=== PATIENT | male | born 1950 | race Caucasian/White ===

== ENCOUNTER → 2018-11-01 09:05 | Outpatient (CLI) | payer MEDICARE, OTHER, SELFPAY ==
--- NOTE | 2018-11-01 09:07 | DI.RAD.S_ITS ---
PROCEDURE: XR LUMBAR SPINE MIN 4V INDICATIONS: Lumbosacral spondylosis TECHNIQUE: 5 views of the lumbar spine were acquired. COMPARISON: [facility] ORI Verm[place], SPINE LUMB MIN 4VW, 02/28/2017, 8:32. [facility] [place], RF, LUMBAR MBB, 10/06/2017, 11:22. FINDINGS: Bones: No fracture or focal osseous destruction. Mild dextrocurvature. Straightening of the normal lumbar lordosis. Diffuse endplate osteophytosis and sclerosis. Diffuse facet arthropathy. Severe uniform narrowing of all of the lumbar disc spaces. Soft tissues: Overlying bowel gas pattern is normal. Scattered atherosclerotic ossifications project in the aorta No suspicious soft tissue calcifications. Oblique images: No pars defects. IMPRESSION: Redemonstration of severe, diffuse lumbar disc degeneration and facet arthropathy. Straightening of the lumbar lordosis and dextrocurvature centered at L3 as before. Overall, no definite interval change. Dictated by: Luis Caceres M.D. on 11/01/2018 at 10:07 Approved by: Luis Caceres M.D. on 11/01/2018 at 10:09
== END ==
PROVIDERS: PCP Physician Assistant; Visit Provider Physical Medicine & Rehabilitation
DX: M47.817 Spondylosis without myelopathy or radiculopathy, lumbosacral region (principal); M48.061 Spinal stenosis, lumbar region without neurogenic claudication; M41.50 Other secondary scoliosis, site unspecified
CPT/HCPCS: 72110; 99214

== ENCOUNTER 2018-11-14 10:05 | Outpatient (CLI) | payer MEDICARE, OTHER, SELFPAY ==
[2018-11-14] VITALS (11 sets, daily range): BP systolic 123–154; BP diastolic 47–97; PULSE 18–87; RESP 16–18; TEMP 36.7; O2SAT 93–99
--- NOTE | 2018-11-14 10:07 | DI.RAD.S_ITS ---
PROCEDURE: PAIN L/S MED/LAT N RFA BILAT INDICATIONS: Lumbosacral spondylosis FINDINGS: Fluoroscopic spot filming was performed to verify placement of spinal needles at the L4, L5, S1 level(s), as labeled on the films. Appropriate location(s) of the needle tip(s) was confirmed by injection of iodinated contrast. Dictated by: Luis Caceres M.D. on 11/14/2018 at 17:25 Approved by: Luis Caceres M.D. on 11/14/2018 at 17:25
--- NOTE | 2018-11-14 10:56 | P.PCN_ITS ---
Procedures Date/Time Date of procedure: 11/14/18 Time of procedure: 10:55 General Procedure description: PREOP DIAGNOSIS 1. RECALCITRANT FACET ARTHROPATHY, POST OP DIAGNOSIS 1. RECALCITRANT FACET ARTHROPATHY PROCEDURES 1. BILATERAL L4 AND L5 MEDIAL BRANCH RADIOFREQUENCY NEUROTOMY AND S1 DORSAL RAMUS BRANCH RADIOFREQUENCY NEUROTOMY, PHYSICIAN: Colin Anthony DO INDICATIONS: Hayden is referred by YOVANA Galvez for treatment of facet arthropathy. DESCRIPTION OF PROCEDURE Right L4 and L5 medial branch radiofrequency neurotomy and right S1 dorsal ramus radiofrequency neurotomy under fluoroscopy with conscious sedation. The patient is well known to this clinic having undergone previous facet injections with good but temporary relief. The patient has experienced appropriate, concordant relief with previous facet and median branch blocks but the patient's pain has been recalcitrant to further conservative measures. Therefore, based upon the patient's relief and persistent symptoms, the patient is considered an appropriate candidate for facet rhizotomy. All of the patient's questions regarding the risks versus benefits of the procedure, including, but not limited to, bleeding, infection, temporary as well as lasting nerve injury, paralysis, stroke, and , as well treatment alternatives were answered to satisfaction. After obtaining informed consent, denial of pertinent drug allergies, as well as being made aware of the potential risks of bleeding, infection, spinal cord trauma, paralysis, temporary and permanent nerve damage, seizure, stroke, and possible , the patient was brought to the fluoroscopy suite and positioned prone on the fluoroscopy table. The lumbar region was prepped with Betadine and covered with a fenestrated drape in the usual sterile fashion. Appropriate monitors applied including pulse oximeter, pulse, and blood pressure for regular monitoring throughout the procedure. After review of previous anaesthesic history and IV conscious sedation the patient was deemed safe to proceed with todays procedure with IV conscious sedation as ASA class II designation. Safety time-out was performed to confirm patient ID, procedure to be performed and site of procedure. IV sedation was accomplished with a combination of 5mg of Versed and 50mcg of Fentanyl administered by the RN after DO order, titrated to patient comfort during the course of the procedure while the patient remained responsive to all verbal commands. After local infiltration using 1% lidocaine, under fluoroscopic guidance, a 10- cm RF insulated needle with a 10-mm active tip was positioned parallel to the junction of the right sacral ala and the superior articulating process where the S1 dorsal ramus resides. Needle placement was confirmed with sensory stimulation at 50 Hz, with motor stimulation of .5v on the right which produced local stimulation without radicular component. The stimulation was then increased to 1.5v with, once again, only local multifidus stimulation without radicular component. This was then followed by two discreet lesions performed at 80 degrees Celsius for 90 seconds each. The needle was then removed and the identical procedure was performed along the length of the right L5 medial branch with motor stimulation at .7v on the right. The identical procedure was once again performed along the length of the right L4 medial branch with motor stimulation of .5v on the right. The identical procedure was repeated on the left. The patient tolerated the procedure well without signs or symptoms of complications prior to transfer to the recovery area continued monitoring without incident. The patient was then transferred to the recovery area where they were observed for an appropriate period of time after the injection. The patient reported a VAS score of 9 prior to the procedure and a post-procedure VAS of 0. Total Fluoroscopy Time: 22.7 seconds Total Conscious Sedation Time: 34min POST OP INSTRUCTIONS The patient was provided a Pain Log to continue to record the patient's response to the target-specific procedure prior to the patient's follow-up visit with the referring physician. Additionally, specific post-injection care instructions and a contact number to our office were provided if concerns arise regarding possible complications associated with the procedure are suspected. Colin Anthony, Complications: none
[2018-11-14] MEDS: fentaNYL 100 MCG/2 ML INJ 50 MCG IV (11:00)
[2018-11-14] MEDS: MIDAZOLAM 5 MG/5 ML VIAL IV (11:00)
[2018-11-14] MEDS: LIDOCAINE 1% 20 ML INJ 10 ML INJ (11:07)
[2018-11-14] MEDS: BUPIVACAINE 0.5% (PF) VIAL 2 ML INJ (11:07)
[2018-11-14] MEDS: BETAMETHASONE 30 MG/5 ML MDV 12 MG INJ (11:08)
--- NOTE | 2018-11-14 11:43 | PC.NURSE ---
pt tolerated procedure well. Able to get off table with standby assist. Transferred pt via wheelchair to pre procedure room for continued monitoring with Sasha REYNOSO.
== END 2018-11-14 12:13 | disposition home or self-care (01) ==
LOC: RAD 10:06
PROVIDERS: PCP Physician Assistant; Visit Provider Physical Medicine & Rehabilitation
DX: M47.817 Spondylosis without myelopathy or radiculopathy, lumbosacral region (principal); M48.061 Spinal stenosis, lumbar region without neurogenic claudication; M41.50 Other secondary scoliosis, site unspecified
CPT/HCPCS: 64635; 64636; 99152; J0702; J2250; J3010

== ENCOUNTER 2019-01-08 07:24 | Outpatient (CLI) | payer MEDICARE, OTHER, SELFPAY ==
[2019-01-08] VITALS (9 sets, daily range): BP systolic 127–143; BP diastolic 59–83; PULSE 71–79; RESP 16–18; TEMP 36.3; O2SAT 94–98
--- NOTE | 2019-01-08 07:28 | DI.RAD.S_ITS ---
PROCEDURE: PAIN L/S MED/LAT N RFA INDICATIONS: SPONDYLOSIS FINDINGS: Fluoroscopic spot filming was performed to verify placement of spinal needles at the left L4, L5 and S1 level(s), as labeled on the films. Appropriate location(s) of the needle tip(s) was confirmed by injection of iodinated contrast. IMPRESSION: Fluoroscopy for pain management. Dictated by: Chance Long M.D. on 01/08/2019 at 10:03 Approved by: Chance Long M.D. on 01/08/2019 at 10:03
[2019-01-08] MEDS: MIDAZOLAM 5 MG/5 ML VIAL IV (08:37)
[2019-01-08] MEDS: fentaNYL 100 MCG/2 ML INJ 50 MCG IV (08:38)
[2019-01-08] MEDS: BUPIVACAINE 0.5% (PF) VIAL 2 ML INJ (08:41)
[2019-01-08] MEDS: LIDOCAINE 1% 20 ML INJ 10 ML INJ (08:41)
[2019-01-08] MEDS: BETAMETHASONE 30 MG/5 ML MDV 12 MG INJ (08:42)
--- NOTE | 2019-01-08 09:03 | PC.NURSE ---
ASSISTING PT OFF PROC TABLE AND TRANSPORTING TO POST PROC AREA IN STABLE CONDITION
--- NOTE | 2019-01-08 09:11 | P.PCN_ITS ---
Procedures Date/Time Date of procedure: 01/08/19 Time of procedure: 09:10 General Procedure description: PREOP DIAGNOSIS 1. RECALCITRANT FACET ARTHROPATHY, POST OP DIAGNOSIS 1. RECALCITRANT FACET ARTHROPATHY, PROCEDURES 1. LEFTT L4 AND L5 MEDIAL BRANCH RADIOFREQUENCY NEUROTOMY AND LEFT S1 DORSAL RAMUS RADIOFREQUENCY NEUROTOMY, PHYSICIAN: DO MARANDA Mendiola Hayden is referred by YOVANA Galvez for treatment of facet arthropathy. DESCRIPTION OF PROCEDURE Left L4 and L5 medial branch radiofrequency neurotomy and left S1 dorsal ramus branch radiofrequency neurotomy under fluoroscopy with conscious sedation. The patient is well known to this clinic having undergone previous facet injections with good but temporary relief. The patient has experienced appropriate, concordant relief with previous facet and median branch blocks but the patient's pain has been recalcitrant to further conservative measures. Therefore, based upon the patient's relief and persistent symptoms, the patient is considered an appropriate candidate for facet rhizotomy. All of the patient's questions regarding the risks versus benefits of the procedure, including, but not limited to, bleeding, infection, temporary as well as lasting nerve injury, paralysis, stroke, and , as well treatment alternatives were answered to satisfaction. After obtaining informed consent, denial of pertinent drug allergies, as well as being made aware of the potential risks of bleeding, infection, spinal cord trauma, paralysis, temporary and permanent nerve damage, seizure, stroke, and possible , the patient was brought to the fluoroscopy suite and positioned prone on the fluoroscopy table. The lumbar region was prepped with Betadine and covered with a fenestrated drape in the usual sterile fashion. Appropriate monitors applied including pulse oximeter, pulse, and blood pressure for regular monitoring throughout the procedure. IV sedation was accomplished with a combination of 3mg of Versed and 50mcg of Fentanyl titrated to patient comfort during the course of the procedure while the patient remained responsive to all verbal commands. After local infiltration using 1% lidocaine, under fluoroscopic guidance, a 10- cm RF insulated needle with a 10-mm active tip was positioned parallel to the junction of the left sacral ala and the superior articulating process where the S1 dorsal ramus resides. Needle placement was confirmed with sensory stimulation at 50 Hz, with motor stimulation of .5v on the left which produced local stimulation without radicular component. The stimulation was then increased to 1.5v with, once again, only local multifidus stimulation without radicular component. This was then followed by two discreet lesions performed at 80 degrees Celsius for 90 seconds each. The needle was then removed and the identical procedure was performed along the length of the left L5 medial branch with motor stimulation at .7v on the leftt. The identical procedure was once again performed along the length of the left L4 medial branch with motor stimulation of .5v on the left. The patient tolerated the procedure well without signs or symptoms of complications prior to transfer to the recovery area continued monitoring without incident. The patient was then transferred to the recovery area where they were observed for an appropriate period of time after the injection. The patient was then transferred to the recovery area where they were observed for an appropriate period of time after the injection. The patient reported a VAS score of 9 prior to the procedure and a post- procedure VAS of 0. Total Fluoroscopy Time: 22.7 seconds Total Conscious Sedation Time: 34min POST OP INSTRUCTIONS The patient was provided a Pain Log to continue to record the patient's response to the target-specific procedure prior to the patient's follow-up visit with the referring physician. Additionally, specific post-injection care instructions and a contact number to our office were provided if concerns arise regarding possible complications associated with the procedure are suspected. Colin Anthony, Complications: none
--- NOTE | 2019-01-08 09:38 | PC.NURSE ---
pt returned from procedure @0910 awake and alert, able to get from w/c to chair with standby assist. Resumed monitoring from Sasha REYNOSO.
--- NOTE | 2019-01-09 14:37 | PC.NURSE ---
FOLLOW UP CALL MADE, PT CONTINUES TO C/O BACK SPASM THAT STARTED EARLY YESTERDAY MORNING BEFORE PROCEDURE BUT STATES IT'S GETTING BETTER. PT DENIES CONCERNS ABOUT YESTERDAY'S PROCEDURE AND DENIES QUESTIONS.
== END 2019-01-08 09:26 ==
LOC: RAD 07:26
PROVIDERS: PCP Physician Assistant; Visit Provider Physical Medicine & Rehabilitation
DX: M47.817 Spondylosis without myelopathy or radiculopathy, lumbosacral region (principal)
CPT/HCPCS: 64635; 64636; 99152; J0702; J2250; J3010

== ENCOUNTER 2019-06-20 12:09 | Outpatient (CLI) | payer MEDICARE, OTHER, SELFPAY ==
--- NOTE | 2019-06-20 12:13 | DI.RAD.S_ITS ---
PROCEDURE: PAIN SI JOINT INJECTION INDICATIONS: SACROCOCCYGEAL DISORDER FINDINGS: Fluoroscopic spot filming was performed to verify placement of spinal needles at the left SI joint level(s), as labeled on the films. Appropriate location(s) of the needle tip(s) was confirmed by injection of iodinated contrast. IMPRESSION: Fluoroscopy for pain management. Dictated by: Chance Long M.D. on 06/20/2019 at 16:00 Approved by: Chance Long M.D. on 06/20/2019 at 16:00
[2019-06-20 12:43] VITALS: BP 132/75; PULSE 70; TEMP 36.9; O2SAT 98
[2019-06-20 13:47] VITALS: BP 141/66; PULSE 83; RESP 16; O2SAT 95
[2019-06-20] MEDS: MIDAZOLAM 5 MG/5 ML VIAL IV (13:48)
[2019-06-20] MEDS: fentaNYL 100 MCG/2 ML INJ 50 MCG IV (13:49)
[2019-06-20] MEDS: BETAMETHASONE 30 MG/5 ML MDV 12 MG INJ (13:52)
[2019-06-20] MEDS: BUPIVACAINE 0.5% (PF) VIAL 2 ML INJ (13:52)
[2019-06-20] MEDS: IOPAMIDOL 15 ML VIAL 3 ML INJ (13:52)
--- NOTE | 2019-06-20 13:55 | PC.NURSE ---
ASSISTING PT TO POST PROC AREA IN STABLE CONDITION. PASSING RN CARE OFF TO TAZ Johnson RN.
--- NOTE | 2019-06-20 14:03 | PM.PROC.1 ---
Procedures Date/Time Date of procedure: 06/20/19 Time of procedure: 14:03 General Procedure description: PREOP Dx: Sacroiliac joint pain/DJD POST OP DX: Sacroiliac Joint Pain/DJD Procedures: Fluoroscopic guided contrast controlled left sacroiliac joint injection Physician: Colin Anthony D.O. Indications: Hayden is referred by YOVANA Galvez for treatment of left sacroiliac joint DJD Description of procedure Fluoroscopic guided, contrast controlled left sacroiliac joint injection Following review of allergies and review of potential side effects and complications, including, but not necessarily limited to, infection, allergic reaction, local tissue breakdown, temporary as well as permanent nerve injury, paralysis, stroke and possible , the patient indicated that they understood and agreed to proceed. An informed consent was signed by the patient, witnessed by a nurse, and placed in the patient's chart. Additionally, other treatment options including modalities, medications, and physical therapy were reviewed with the patient. After review of previous anaesthesic history and IV conscious sedation the patient was deemed safe to proceed with todays procedure with IV conscious sedation as ASA class II designation. Safety time-out was performed to confirm patient ID, procedure to be performed and site of procedure. IV sedation was accomplished with a combination of 2mg of Versed and 50mcg of Fentanyl administered by the RN after DO order, titrated to patient comfort during the course of the procedure while the patient remained responsive to all verbal commands. In the prone position following sterile prep and drape of the pelvic region, the hyper lucency on in the inferior aspect of the left sacroiliac joint was identified fluoroscopically the skin was anesthetized be a 25 gauge 1 eventual with approximately 2 cc of 1% lidocaine solution. At this point, a 22 gauge 3 in spinal needle was atraumatically introduced and advanced under fluoroscopic guidance into the inferior aspect of the left sacroiliac joint. Following negative aspiration, approximately 0.3 cc of Isovue-300 was injected confirming intra-articular placement without vascular uptake. Radiographic data, including multiple fluoroscopic views of the pelvis, reveals a spinal needle in the left sacroiliac joint hyper lucent zone. Subsequent view show flow contrast tear superiorly and inferiorly within the joint capsule without vascular intrathecal uptake. At this point a total of 1cc or 0.5% Marcaine was combined with 1cc of 6mg of betamethasone was injected without incident. The patient tolerated the procedure well without signs or symptoms of complications prior to transfer to the recovery area for further monitoring. The patient was then transferred to the recovery area with a bur observed for an appropriate time after the injection. The patient reverted a vas score of 7 prior to the procedure and postprocedure vas of 1. Total fluoroscopy time: 22.7 sec Total conscious sedation time: 24 min Postop instructions The patient was provided with a pain like to continue to record the patient's response to the target specific procedure prior to the patient's follow-up visit with the referring physician. Additionally, specific post injection care instructions and a contact number to our office were provided if concerns arise regarding the possible complications associated with procedure are suspected. Colin Anthony D.O. Complications: none
[2019-06-20 14:04] VITALS: BP 110/58; PULSE 76; RESP 18; O2SAT 96
[2019-06-20 14:09] VITALS: BP 124/75; PULSE 77; RESP 16; O2SAT 95
[2019-06-20 14:14] VITALS: BP 135/94; RESP 16; O2SAT 97
== END 2019-06-20 14:18 ==
PROVIDERS: PCP Physician Assistant; Visit Provider Physical Medicine & Rehabilitation
DX: M53.3 Sacrococcygeal disorders, not elsewhere classified (principal); M47.818 Spondylosis without myelopathy or radiculopathy, sacral and sacrococcygeal region
CPT/HCPCS: 27096; 99152; J0702; J2250; J3010

== ENCOUNTER → 2019-07-24 12:45 | Outpatient (CLI) | payer MEDICARE, OTHER, SELFPAY ==
--- NOTE | 2019-07-24 12:49 | DI.RAD.S_ITS ---
PROCEDURE: XR LUMBAR SPINE MIN 4V INDICATIONS: Lumbar stenosis TECHNIQUE: 5 views of the lumbar spine were acquired. COMPARISON: [facility], , XR LUMBAR SPINE MIN 4V, 11/01/2018, 9:09. FINDINGS: Bones: No fracture or focal osseous destruction. Mild dextrocurvature. Straightening of the normal lordotic curvature. Trace retrolisthesis of L3 on L4, and L1 on L2. Multilevel degenerative endplate sclerosis and spurring. Diffuse facet arthropathy. Severe diffuse narrowing of the lumbar disc spaces Soft tissues: Scattered vascular calcifications seen in the aorta. Bilateral nephrolithiasis as before Oblique images: No pars defects. IMPRESSION: Severe diffuse lumbar spondylosis and straightening of the normal lordotic curvature. Multilevel facet arthropathy. Bilateral nephrolithiasis as before No definite interval change Dictated by: Luis Caceres M.D. on 07/25/2019 at 8:58 Approved by: Luis Caceres M.D. on 07/25/2019 at 9:04
== END ==
PROVIDERS: PCP Physician Assistant; Visit Provider Physical Medicine & Rehabilitation
DX: M48.061 Spinal stenosis, lumbar region without neurogenic claudication (principal); M47.817 Spondylosis without myelopathy or radiculopathy, lumbosacral region; M47.816 Spondylosis without myelopathy or radiculopathy, lumbar region; M41.50 Other secondary scoliosis, site unspecified; N20.0 Calculus of kidney; K27.9 Peptic ulcer, site unspecified, unspecified as acute or chronic, without hemorrhage or perforation; M53.3 Sacrococcygeal disorders, not elsewhere classified; M70.62 Trochanteric bursitis, left hip
CPT/HCPCS: 72110; 99214

== ENCOUNTER → 2019-07-28 09:16 | Outpatient (CLI) | payer MEDICARE, OTHER, SELFPAY ==
--- NOTE | 2019-07-28 09:20 | DI.MRI.S_ITS ---
PROCEDURE: MR LUMBAR SPINE WO CON INDICATIONS: Lumbar stenosis TECHNIQUE: Noncontrast sagittal T1 spin echo and T2 fast echo, sagittal STIR, axial T1 and T2 fast spin echo through the lumbar spine. In cases with scoliosis, additional coronal T2 fast spin echo may be performed. COMPARISON: [facility], CR, XR LUMBAR SPINE MIN 4V, 07/24/2019, 12:49. FINDINGS: Image quality: Excellent. Alignment and Curvature: Mild dextroconvex scoliotic curvature is seen. There is minimal retrolisthesis seen at L2-L3 and L3-L4 and L5-S1. Bone Marrow: Marrow is of normal overall signal. No acute vertebral body compression fractures. Spinal Cord: Conus medullaris terminates at the L1 level. Visualized cord demonstrates normal signal and size. Paraspinous Soft Tissues: No paravertebral masses. T12-L1: The disc height is well-preserved. Loss of disc signal is seen at this level. Bridging endplate osteophytes are seen. No significant neural foraminal narrowing is seen. Mild central canal narrowing is seen. L1-L2: Moderate loss of disc height is seen. Loss of disc signal is seen. Endplate irregularity can be seen. Bridging endplate osteophytes are seen. Moderate generalized disc bulge is seen. Moderate bilateral neural foraminal narrowing is seen. Moderate central canal narrowing is seen. L2-L3: At least moderate loss of disc height and disc signal are seen. Endplate irregularity can be seen. Posteriorly projected endplate osteophytes are seen. Bridging endplate osteophytes are seen. At least moderate disc bulge is seen. [id number] facet hypertrophy is seen. Moderate bilateral neural foraminal narrowing is seen. Moderate to severe central canal narrowing is seen. L3-L4: Moderate to severe loss of disc height and disc signal are seen, which are more prominent on the left side. Moderate to prominent disc bulge is seen. Moderate facet joint hypertrophy is seen. Moderate to severe bilateral neural foraminal narrowing is seen, left worse than right. There is a degree of compression seen upon the exiting nerve roots. There is severe central canal narrowing seen at this level. L4-L5: Moderate to severe loss of disc height and disc signal are seen. Moderate disc osteophyte complex is seen, with a central disc extrusion. Moderate to prominent facet hypertrophy is seen. There is moderate to severe right-sided and at least moderate left-sided neural foraminal narrowing seen. There is a degree of compression seen upon the exiting nerve roots. There is severe central canal narrowing seen at this level. L5-S1: Moderate loss of disc height is seen. Loss of disc signal is seen. Moderate generalized disc bulge is seen. [id number]-zc-vqsltudz facet hypertrophy is seen. There is at least moderate bilateral neural foraminal narrowing seen, left worse than right. There is a degree of compression seen upon the exiting nerve roots. At least moderate central canal narrowing is seen, which is exacerbated by prominent epidural fat. IMPRESSION: Multiple levels of lumbar spine degenerative changes are seen, which are most prominent at L3-L4 and L4-L5. Dextroconvex scoliotic curvature is seen. Dictated by: Vitaliy Murphy M.D. on 07/29/2019 at 8:34 Approved by: Vitaliy Murphy M.D. on 07/29/2019 at 8:46
== END ==
PROVIDERS: PCP Physician Assistant; Visit Provider Physical Medicine & Rehabilitation
DX: M48.061 Spinal stenosis, lumbar region without neurogenic claudication (principal); M48.07 Spinal stenosis, lumbosacral region; M47.816 Spondylosis without myelopathy or radiculopathy, lumbar region; M47.817 Spondylosis without myelopathy or radiculopathy, lumbosacral region; M41.50 Other secondary scoliosis, site unspecified
CPT/HCPCS: 72148

== ENCOUNTER 2019-08-27 12:57 | Outpatient (CLI) | payer MEDICARE, OTHER, SELFPAY ==
[2019-08-27] VITALS (7 sets, daily range): BP systolic 126–154; BP diastolic 78–105; PULSE 78–98; RESP 16–18; TEMP 36.1; O2SAT 95–98
--- NOTE | 2019-08-27 13:01 | DI.RAD.S_ITS ---
PROCEDURE: PAIN L/S TRANSFORAMINAL INJECT INDICATIONS: SPINAL STENOSIS FINDINGS: Fluoroscopic spot filming was performed to verify placement of spinal needles at the L2-L3 level(s), as labeled on the films. Appropriate location(s) of the needle tip(s) was confirmed by injection of iodinated contrast. IMPRESSION: Fluoroscopy for pain management. Dictated by: Chance Long M.D. on 08/27/2019 at 14:54 Approved by: Chance Long M.D. on 08/27/2019 at 14:55
[2019-08-27] MEDS: MIDAZOLAM 5 MG/5 ML VIAL IV (14:07)
[2019-08-27] MEDS: fentaNYL 100 MCG/2 ML INJ 50 MCG IV (14:08)
[2019-08-27] MEDS: BETAMETHASONE 30 MG/5 ML MDV 6 MG INJ (14:13)
[2019-08-27] MEDS: IOPAMIDOL 15 ML VIAL 3 ML INJ (14:13)
[2019-08-27] MEDS: BUPIVACAINE 0.25% (PF) VIAL 2 ML INJ (14:13)
[2019-08-27] MEDS: methylPREDNISolone acetate 80 MG/ML VIAL INJ (14:14)
--- NOTE | 2019-08-27 14:21 | PC.NURSE ---
DR CHAVEZ AWARE OF HIGH DIASTOLIC, NO NEW ORDERS AT THIS TIME. ASSISTING PT OFF TABLE AND TRANSPORTING TO POST PROC AREA IN STABLE CONDITION. PASSING RN CARE OF PT TO TAZ Johnson RN.
--- NOTE | 2019-08-27 14:30 | PM.PROC.1 ---
Procedures Date/Time Date of procedure: 08/27/19 Time of procedure: 14:30 General Procedure description: PROVIDER: Colin Anthony DO Operative Note PREOP DIAGNOSIS 1. FORAMINAL STENOSIS WITH LE SYMPTOMS, POST OP DIAGNOSIS 1. FORAMINAL STENOSIS WITH LE SYMPTOMS, PROCEDURES 1. FLUOROSCOPICALLY GUIDED CONTRAST CONTROLLED TRANSFORAMINAL EPIDURAL STEROID INJECTION - LEFT L3/4 TFESI SURGEON: Colin Anthony DO INDICATIONS Hayden is referred by YOVANA Galvez for treatment of Foraminal Stenosis with left LE Symptoms FINDINGS Foraminal Nerve Root Compression secondary to disc disease and facet hypertrophy DESCRIPTION OF PROCEDURE Following review of allergy and review of potential side effects and complications, including, but not necessarily limited to, infection, allergic reaction, local tissue breakdown, stroke, temporary or permanent nerve injury, paralysis, and possible , the patient indicated that the patient understood and agreed to proceed. An informed consent document was signed by the patient, witnessed by a nurse, and placed in the patient's chart. Additionally, other treatment options including medications, modalities, and physical therapy were reviewed with the patient. After review of previous anaesthesic history and IV conscious sedation the patient was deemed safe to proceed with todays procedure with IV conscious sedation as ASA class II designation. Safety time-out was performed to confirm patient ID, procedure to be performed and site of procedure. IV sedation was accomplished with a combination of 2mg of Versed and 50mcg of Fentanyl was administered by the RN after DO order, titrated to patient comfort during the course of the procedure while the patient remained responsive to all verbal commands In the prone position following sterile prep and drape of the lumbar region, the left L2/3 posterior neuroforamen was identified fluoroscopically. The skin was anesthetized via a 25-gauge 1.5-inch needle with 1% lidocaine solution. At this point, a 25-gauge 3.5-inch spinal needle was atraumatically introduced and advanced under fluoroscopic guidance through the posterior left L2/3 neuroforamen to approximately the anterior aspect of the canal. Depth was confirmed on lateral view. Following negative aspiration, injection of approximately 1.5cc of Isovue 200 under live fluoroscopy in the AP view confirmed excellent flow along the nerve root, into the epidural space without vascular or intrathecal uptake observed Radiological data, including multiple fluoroscopic views of the lumbosacral spine, reveal a spinal needle at the left L2/3 posterior neuroforamen. Subsequent views show flow of contrast material flowing superiorly and inferiorly along the nerve root confirming epidural flow. Subsequently, a test dose of 1.5cc of 1% lidocaine solution was administered and patient was observed for two minutes for signs or symptoms of complications, including abdominal pain, shortness of breath, bilateral upper or lower extremity weakness, nausea and vomiting, prior to steroid injection. At this point, a total of 3cc or 20mg of dexamethasone and 6mg betamethasone was injected without incident. The patient tolerated the procedure well without signs or symptoms of complications prior to transfer to the recovery area continued monitoring without incident. The patient was then transferred to the recovery area where they were observed for an appropriate time after the injection. The patient reported a VAS score of 7 prior to the procedure and a post-procedure VAS of 0. Total Fluoroscopy Time: 24.2 seconds Total Conscious Sedation Time: 24min POST OP INSTRUCTIONS The patient was provided a Pain Log to continue to record their response to the target-specific procedure prior to follow-up visit with their referring physician. Additionally, specific post-injection care instructions and a contact number to our office were provided if concerns arise regarding possible complications associated with the procedure are suspected. Colin Anthony, Complications: none
--- NOTE | 2019-08-27 15:33 | PC.NURSE ---
Discharge note: received handoff report from Hugo Mahan RN at 1430. Patient awake and alert. VSS, No complaints of pain. 0/10. Discharge instructions given and explained to patient and with good understanding. Discharged to home, ambulated to car with at 1443
== END 2019-08-27 14:41 | disposition home or self-care (01) ==
LOC: RAD 13:00
PROVIDERS: PCP Physician Assistant; Visit Provider Physical Medicine & Rehabilitation
DX: M48.061 Spinal stenosis, lumbar region without neurogenic claudication (principal); M51.16 Intervertebral disc disorders with radiculopathy, lumbar region
CPT/HCPCS: 64483; 99152; J0702; J1040; J1100; J2250; J3010

== ENCOUNTER → 2019-10-23 11:43 | Outpatient (CLI) | payer MEDICARE, OTHER, SELFPAY ==
--- NOTE | 2019-10-23 11:45 | DI.RAD.S_ITS ---
PROCEDURE: XR KNEE RT 3V INDICATIONS: knee pain TECHNIQUE: 3 views of the knee were acquired. COMPARISON: None. FINDINGS: Bones: No fractures or dislocations, but there is a moderate degree of medial compartment joint space narrowing indicating osteoarthritic change in that area. Also, a mild degree of narrowing of the lateral facet patellofemoral joint interspace is present. No suspicious bony lesions. Soft tissues: No joint effusion. No suspicious soft tissue calcifications. IMPRESSION: Mild to moderate degenerative knee joint osteoarthritis without evidence of prior trauma or joint effusion/loose body. Dictated by: Stan Hussein M.D. on 10/23/2019 at 12:44 Approved by: Stan Hussein M.D. on 10/23/2019 at 12:45
--- NOTE | 2019-10-23 11:45 | DI.RAD.S_ITS ---
PROCEDURE: XR KNEE LT 3V INDICATIONS: knee pain TECHNIQUE: 3 views of the knee were acquired. COMPARISON: [facility], CR, XR KNEE RT 3V, 10/23/2019, 12:06. FINDINGS: Bones: No fractures or dislocations, but there is moderately severe medial compartment and moderate lateral compartment degenerative knee joint space narrowing, and at the patellofemoral joint there is mild to moderate lateral facet patellofemoral joint osteoarthritis also.. No suspicious bony lesions. Soft tissues: No joint effusion. No suspicious soft tissue calcifications. IMPRESSION: Mild to moderate degenerative osteoarthritis which is greater in all 3 compartments than on the right from plain film imaging performed same day. No effusion or loose body found. Dictated by: Stan Hussein M.D. on 10/23/2019 at 12:45 Approved by: Stan Hussein M.D. on 10/23/2019 at 12:46
== END ==
PROVIDERS: PCP Physician Assistant; Referring Provider Physical Medicine & Rehabilitation; Visit Provider Physical Medicine & Rehabilitation
DX: M17.0 Bilateral primary osteoarthritis of knee (principal); M25.562 Pain in left knee; M25.561 Pain in right knee; M48.061 Spinal stenosis, lumbar region without neurogenic claudication; M53.3 Sacrococcygeal disorders, not elsewhere classified; M41.50 Other secondary scoliosis, site unspecified
CPT/HCPCS: 20611; 73562; 99213; J7318

== ENCOUNTER → 2020-02-08 17:04 | Outpatient (ROUT) | payer MEDICARE, OTHER, SELFPAY ==
[2020-02-09 08:33] LABS: COVID19 Sendout Not Detected (Not Detect)
== END ==
PROVIDERS: PCP Physician Assistant; Visit Provider Physician Assistant
DX: Z01.818 Encounter for other preprocedural examination (principal)
CPT/HCPCS: 87635

== ENCOUNTER 2020-02-11 07:14 | Outpatient (CLI) | payer MEDICARE, OTHER, SELFPAY ==
[2020-02-11] VITALS (10 sets, daily range): BP systolic 110–144; BP diastolic 66–96; PULSE 65–75; RESP 16–18; TEMP 36; O2SAT 96–100
--- NOTE | 2020-02-11 07:16 | DI.RAD.S_ITS ---
PROCEDURE: PAIN L INTERLAMINAR/CAUDAL INJ INDICATIONS: SPONDYLOSIS FINDINGS: Fluoroscopic spot filming was performed to verify placement of spinal needles at the L3-L4 level(s), as labeled on the films. Appropriate location(s) of the needle tip(s) was confirmed by injection of iodinated contrast. Dictated by: Luis Caceres M.D. on 02/11/2020 at 10:37 Approved by: Luis Caceres M.D. on 02/11/2020 at 10:38
[2020-02-11] MEDS: MIDAZOLAM 5 MG/5 ML VIAL IV (09:00)
[2020-02-11] MEDS: fentaNYL 100 MCG/2 ML INJ 50 MCG IV (09:00)
[2020-02-11] MEDS: IOPAMIDOL 15 ML VIAL 3 ML INJ (09:09)
[2020-02-11] MEDS: DEXAMETHASONE 10 MG/ML VIAL 20 MG INJ (09:10)
[2020-02-11] MEDS: BUPIVACAINE 0.25% (PF) VIAL 2 ML INJ (09:10)
--- NOTE | 2020-02-11 09:27 | PC.NURSE ---
ASSISTING PT OFF TABLE AND TRANSPORTING TO POST PROC AREA IN STABLE CONDITION. PASSING RN CARE OF PT OFF TO ANGELES QUEZADA.
--- NOTE | 2020-02-11 09:34 | P.PCN_ITS ---
Procedures Date/Time Date of procedure: 02/11/20 Time of procedure: 09:34 General Procedure description: POST OP DIAGNOSIS 1. HNP WITH RADICULAR FEATURES, 2. MULTILEVEL CENTRAL STENOSIS, PROCEDURES 1. FLUORSCOPICALLY GUIDED CONTRAST CONTROLLED INTERLAMINAR EPIDURAL STEROID INJECTION - L3/4 PHYSICIAN: Colin Anthony DO INDICATIONS Hayden is referred by YOVANA Galvez for treatment of Bilateral Foraminal Stenosis L>R LE symptoms. FINDINGS Multilevel Central Spinal Stenosis with Nerve Root Compression DESCRIPTION OF PROCEDURE Fluoroscopically guided, contrast-controlled L3/4 translaminar epidural steroid injection. Following review of allergy and review of potential side effects and complications, including, but not necessarily limited to, infection, allergic reaction, local tissue breakdown, temporary as well as permanent nerve injury, paralysis, stroke and possible , the patient indicated that the patient understood and agreed to proceed. An informed consent document was signed by the patient, witnessed by a nurse, and placed in the patient's chart. Additionally, other treatment options including modalities, medications, and physical therapy were reviewed with the patient. After review of previous anaesthesic history and IV conscious sedation the patient was deemed safe to proceed with todays procedure with IV conscious sedation as ASA class II designation. Safety time-out was performed to confirm patient ID, procedure to be performed and site of procedure. IV sedation was accomplished with a combination of 2mg of Versed and 50mcg of Fentanyl was administered by the RN after DO order, titrated to patient comfort during the course of the procedure while the patient remained responsive to all verbal commands. In the prone position, following sterile prep and drape of the lumbar region, the L3/4 translaminar space was identified fluoroscopically. The skin was anesthetized via a 25-gauge, 1.5-inch needle with 1% lidocaine solution. At this point, a 22-gauge short bevel spinal needle was atraumatically introduced and advanced under fluoroscopic guidance into the region of the L3/4 translaminar space. Depth was confirmed on lateral view. Radiological data, including multiple fluoroscopic views of the lumbar spine, reveal a spinal needle at the L3/4 translaminar space. Lateral views then show placement of the needle in the epidural space. Subsequent views show contrast material flowing superiorly and inferiorly in the epidural space. No vascular or intrathecal uptake is observed. At this point, using loss of resistance technique with saline and air, the epidural space was entered. This was confirmed following negative aspiration with injection of approximately 1.5 cc of Isovue 200, showing excellent epidural flow without vascular or intrathecal uptake. At this point, 1 cc of 1% lidocaine solution combined with 3cc or 20mg of dexamethasone and 6mg of betamethasone was injected without incident. The patient tolerated the procedure well without signs or symptoms of complications prior to transfer to the recovery area continued monitoring without incident. The patient was then transferred to the recovery area where they were observed for an appropriate period of time after the injection. The patient reported a VAS score of 6 prior to the procedure and a post- procedure VAS of 0. Total Fluoroscopy Time: 11.8 seconds Total Conscious Sedation Time: 24min POST OP INSTRUCTIONS The patient was provided a Pain Log to continue to record their response to the target-specific procedure prior to follow-up visit with their referring physician. Additionally, specific post-injection care instructions and a contact number to our office were provided if concerns arise regarding possible complications associated with the procedure are suspected. Colin Anthony DO Complications: none
--- NOTE | 2020-02-11 11:04 | PC.NURSE ---
pt returned to post procedure room. Stable transfer from wc to chair. resumed monitoring from ANGELES Baez
== END 2020-02-11 09:56 | disposition home or self-care (01) ==
LOC: RAD 07:15
PROVIDERS: PCP Physician Assistant; Referring Provider Physical Medicine & Rehabilitation; Visit Provider Physical Medicine & Rehabilitation
DX: M51.16 Intervertebral disc disorders with radiculopathy, lumbar region (principal); M48.061 Spinal stenosis, lumbar region without neurogenic claudication
CPT/HCPCS: 62323; 99152; J1100; J2250; J3010

== ENCOUNTER → 2020-06-08 08:31 | Outpatient (CLI) | payer MEDICARE, OTHER, SELFPAY ==
[2020-06-09 12:36] LABS: COVID19 Sendout Not Detected (Not Detect)
== END ==
PROVIDERS: PCP Physician Assistant; Visit Provider Physician Assistant
DX: Z11.59 Encounter for screening for other viral diseases (principal)
CPT/HCPCS: 87635

== ENCOUNTER 2020-06-11 12:22 | Outpatient (CLI) | payer MEDICARE, OTHER, SELFPAY ==
[2020-06-11] VITALS (8 sets, daily range): BP systolic 122–175; BP diastolic 67–89; PULSE 76–81; RESP 13–25; TEMP 37; O2SAT 94–97
--- NOTE | 2020-06-11 12:29 | DI.RAD.S_ITS ---
PROCEDURE: PAIN L INTERLAMINAR/CAUDAL INJ INDICATIONS: SPONDYLOSIS COMPARISON: [facility], XA, PAIN L INTERLAMINAR/CAUDAL INJ, 02/11/2020, 8:04. FINDINGS: Fluoroscopic spot filming was performed to verify placement of a spinal needle at the L4-L5 level, as labeled on the films. Appropriate location of the needle tip was confirmed by injection of iodinated contrast. IMPRESSION: Intraprocedural examination within normal limits. Dictated by: Vitaliy Murphy M.D. on 06/11/2020 at 13:31 Approved by: Vitaliy Murphy M.D. on 06/11/2020 at 13:31
[2020-06-11] MEDS: fentaNYL 100 MCG/2 ML INJ 50 MCG IV (13:20)
[2020-06-11] MEDS: diphenhydrAMINE 50 MG/ML VIAL IM (13:20)
[2020-06-11] MEDS: MIDAZOLAM 5 MG/5 ML VIAL IV (13:20)
[2020-06-11] MEDS: BUPIVACAINE 0.25% (PF) VIAL 2 ML INJ (13:29)
[2020-06-11] MEDS: IOPAMIDOL 15 ML VIAL 3 ML INJ (13:29)
[2020-06-11] MEDS: DEXAMETHASONE 10 MG/ML VIAL 20 MG INJ (13:30)
[2020-06-11] MEDS: BETAMETHASONE 30 MG/5 ML MDV 6 MG INJ (13:30)
--- NOTE | 2020-06-11 13:44 | P.PCN_ITS ---
Date/Time/Diagnoses Date of procedure: 06/11/20 Time of procedure: 13:45 Pre-procedure diagnosis: 1. HNP WITH RADICULAR FEATURES, 2. MULTILEVEL CENTRAL STENOSIS, Post-procedure diagnosis: same Procedure Notes Procedure: 1. FLUOROSCOPICALLY GUIDED CONTRAST CONTROLLED INTERLAMINAR EPIDURAL STEROID INJECTION -L4/5 Indications: Hayden is referred by YOVANA Galvez for treatment of Bilateral Foraminal Stenosis R>L LE symptoms. Physician: Colin Anthony Total Fluoroscopy time (seconds): 8 Total sedation minutes: 14 Complications: none Procedure in detail & Post-procedure care: FINDINGS Multilevel Central Spinal Stenosis with Nerve Root Compression DESCRIPTION OF PROCEDURE Fluoroscopically guided, contrast-controlled L4/5 translaminar epidural steroid injection. Following review of allergy and review of potential side effects and complications, including, but not necessarily limited to, infection, allergic reaction, local tissue breakdown, temporary as well as permanent nerve injury, paralysis, stroke and possible , the patient indicated that the patient understood and agreed to proceed. An informed consent document was signed by the patient, witnessed by a nurse, and placed in the patient's chart. Additionally, other treatment options including modalities, medications, and physical therapy were reviewed with the patient. After review of previous anaesthesic history and IV conscious sedation the patient was deemed safe to proceed with today?s procedure with IV conscious sedation as ASA class II designation. Safety time-out was performed to confirm patient ID, procedure to be performed and site of procedure. IV sedation was accomplished with a combination of 2mg of Versed and 50mcg of Fentanyl was administered by the RN after DO order, titrated to patient comfort during the course of the procedure while the patient remained responsive to all verbal commands In the prone position, following sterile prep and drape of the lumbar region, the L4/5 translaminar space was identified fluoroscopically. The skin was anesthetized via a 25-gauge, 1.5inch needle with 1% lidocaine solution. At this point, a 22-gauge short bevel spinal needle was atraumatically introduced and advanced under fluoroscopic guidance into the region of the L4/5 translaminar space. Depth was confirmed on lateral view. Radiological data, including multiple fluoroscopic views of the lumbar spine, reveal a spinal needle at the L4/5 translaminar space. Lateral views then show placement of the needle in the epidural space. Subsequent views show contrast material flowing superiorly and inferiorly in the epidural space. No vascular or intrathecal uptake is observed. At this point, using loss of resistance technique with saline and air, the epidural space was entered. This was confirmed following negative aspiration with injection of approximately 1.5cc of Isovue 200, showing excellent epidural flow without vascular or intrathecal uptake. At this point, 1cc of 1% lidocaine solution combined with 3cc or 20mg of dexamethasone and 6mg betamethasone was injected without incident. The patient tolerated the procedure well without signs or symptoms of compl ications prior to transfer to the recovery area continued monitoring without incident. The patient was then transferred to the recovery area where they were observed for an appropriate period of time after the injection. The patient reported a VAS score of 6 prior to the procedure and a post- procedure VAS of 0. POST OP INSTRUCTIONS The patient was provided a Pain Log to continue to record their response to the target-specific procedure prior to follow-up visit with their referring physician. Additionally, specific post-injection care instructions and a contact number to our office were provided if concerns arise regarding possible complications associated with the procedure are suspected.
== END 2020-06-11 14:20 | disposition home or self-care (01) ==
PROVIDERS: PCP Physician Assistant; Referring Provider Physical Medicine & Rehabilitation; Visit Provider Physical Medicine & Rehabilitation
DX: M51.16 Intervertebral disc disorders with radiculopathy, lumbar region (principal); M48.061 Spinal stenosis, lumbar region without neurogenic claudication
CPT/HCPCS: 62323; 99152; J0702; J1100; J1200; J2250; J3010

== ENCOUNTER → 2021-01-20 08:42 | Outpatient (CLI) | payer MEDICARE, OTHER, SELFPAY ==
--- NOTE | 2021-01-20 08:43 | DI.RAD.S_ITS ---
PROCEDURE: XR LUMBAR SPINE MIN 4V INDICATIONS: BACK PAIN TECHNIQUE: 5 views of the lumbar spine acquired, including flexion and extension views. COMPARISON: [facility], CR, XR LUMBAR SPINE MIN 4V, 07/24/2019, 12:49. FINDINGS: Bones: 5 nonrib-bearing vertebrae are present. Mild dextroscoliosis centered at the L3 level. Loss of lordosis which could be related to muscle spasm, rigidity or simply positional. Severe multilevel disc degeneration redemonstrated as well as multilevel mid and lower cervical spine facet joint arthropathy and neural foraminal narrowing.. No vertebral body compression fractures. No suspicious bony lesions. Soft tissues: Overlying bowel gas pattern is normal. No suspicious soft tissue calcifications. Bilateral renal calcifications redemonstrated. Vascular calcifications indicate atherosclerosis. IMPRESSION: Severe multilevel spondylosis similar to prior examination. Dictated by: Robb CARRERA Interpreted: Hamida Sánchez MD on 01/20/2021 at 9:41 Transcribed by: ERNESTINA on 01/20/2021 at 9:43 Approved by: Hamida Sánchez M.D. on 01/20/2021 at 13:28
== END ==
PROVIDERS: PCP Physician Assistant; Referring Provider Physical Medicine & Rehabilitation; Visit Provider Physical Medicine & Rehabilitation
DX: M51.26 Other intervertebral disc displacement, lumbar region (principal); M48.061 Spinal stenosis, lumbar region without neurogenic claudication; M47.816 Spondylosis without myelopathy or radiculopathy, lumbar region; M47.817 Spondylosis without myelopathy or radiculopathy, lumbosacral region; M41.80 Other forms of scoliosis, site unspecified
CPT/HCPCS: 72110; 99215

== ENCOUNTER 2023-05-18 10:57 | Outpatient (CLI) | payer MEDICARE, OTHER, SELFPAY ==
[2023-05-18] VITALS (8 sets, daily range): BP systolic 131–177; BP diastolic 59–83; PULSE 75–97; RESP 14–22; TEMP 36.4; O2SAT 97–99
--- NOTE | 2023-05-18 10:58 | DI.RAD.S_ITS ---
PROCEDURE: PAIN L INTERLAMINAR/CAUDAL INJ INDICATIONS: SPONDYLOSIS COMPARISON: [facility], XA, PAIN L INTERLAMINAR/CAUDAL INJ, 06/11/2020, 13:27. FINDINGS: Fluoroscopic spot filming was performed to verify placement of a spinal needle at the L3-L4 level, as labeled on the films. Appropriate location of the needle tip was confirmed by injection of iodinated contrast. IMPRESSION: Intraprocedural examination within normal limits. Dictated by: Vitaliy Murphy M.D. on 05/18/2023 at 15:21 Approved by: Vitaliy Murphy M.D. on 05/18/2023 at 15:21
[2023-05-18] MEDS: MIDAZOLAM 2 MG/2 ML VIAL IV (11:44)
[2023-05-18] MEDS: IOPAMIDOL 15 ML VIAL 3 ML INJ (11:51)
[2023-05-18] MEDS: DEXAMETHASONE 10 MG/ML VIAL INJ (11:51)
[2023-05-18] MEDS: BUPIVACAINE 0.25% (PF) VIAL 2 ML INJ (11:51)
[2023-05-18] MEDS: BETAMETHASONE 30 MG/5 ML MDV 6 MG INJ (11:51)
--- NOTE | 2023-05-18 12:07 | P.PCN_ITS ---
Date/Time/Diagnoses Date of procedure: 05/18/23 Time of procedure: 12:07 Pre-procedure diagnosis: 1. HNP WITH RADICULAR FEATURES, 2. MULTILEVEL CENTRAL STENOSIS, Post-procedure diagnosis: same Procedure Notes Procedure: 1. FLUOROSCOPICALLY GUIDED CONTRAST CONTROLLED INTERLAMINAR EPIDURAL STEROID INJECTION - L3/4 Indications: Adriane is referred by Dr. Carcamo and GIULIANO Galvez for treatment of Bilateral Foraminal Stenosis L>R LE symptoms. Physician: Colin Anthony Total Fluoroscopy time (seconds): 22 Total sedation minutes: 16 Complications: none Procedure in detail & Post-procedure care: FINDINGS Multilevel Central Spinal Stenosis with Nerve Root Compression DESCRIPTION OF PROCEDURE Fluoroscopically guided, contrast-controlled L3/4 translaminar epidural steroid injection. Following review of allergy and review of potential side effects and complications, including, but not necessarily limited to, infection, allergic reaction, local tissue breakdown, temporary as well as permanent nerve injury, paralysis, stroke and possible , the patient indicated that the patient understood and agreed to proceed. An informed consent document was signed by the patient, witnessed by a nurse, and placed in the patient's chart. Additionally, other treatment options including modalities, medications, and physical therapy were reviewed with the patient. After review of previous anaesthesic history and IV conscious sedation the patient was deemed safe to proceed with today?s procedure with IV conscious sedation as ASA class II designation. Safety time-out was performed to confirm patient ID, procedure to be performed and site of procedure. IV sedation was accomplished with a combination of 2mg of Versed was administered by the RN after DO order, titrated to patient comfort during the course of the procedure while the patient remained responsive to all verbal commands. In the prone position, following sterile prep and drape of the lumbar region, t he L3/4 translaminar space was identified fluoroscopically. The skin was anesthetized via a 25-gauge, 1.5-inch needle with 1% lidocaine solution. At this point, a 22-gauge short bevel spinal needle was atraumatically introduced and advanced under fluoroscopic guidance into the region of the L3/4 translaminar space. Depth was confirmed on lateral view. Radiological data, including multiple fluoroscopic views of the lumbar spine, reveal a spinal needle at the L3/4 translaminar space. Lateral views then show placement of the needle in the epidural space. Subsequent views show contrast material flowing superiorly and inferiorly in the epidural space. No vascular or intrathecal uptake is observed. At this point, using loss of resistance technique with saline and air, the epidural space was entered. This was confirmed following negative aspiration with injection of approximately 1.5 cc of Isovue 200, showing excellent epidural flow without vascular or intrathecal uptake. At this point, 1cc of 1% lidocaine solution combined with 2cc or 10mg of dexamethasone and 6mg of betamethasone was injected without incident. The patient tolerated the procedure well without signs or symptoms of complications prior to transfer to the recovery area continued monitoring without incident. The patient was then transferred to the recovery area where they were observed for an appropriate period of time after the injection. The patient reported a VAS score of 7 prior to the procedure and a post- procedure VAS of 2. POST OP INSTRUCTIONS The patient was provided a Pain Log to continue to record their response to the target-specific procedure prior to follow-up visit with their referring physician. Additionally, specific post-injection care instructions and a contact number to our office were provided if concerns arise regarding possible complications associated with the procedure are suspected.
== END 2023-05-18 12:19 | disposition home or self-care (01) ==
LOC: RAD 10:58
PROVIDERS: PCP Physician Assistant; Referring Provider Physical Medicine & Rehabilitation; Visit Provider Physical Medicine & Rehabilitation
DX: M51.16 Intervertebral disc disorders with radiculopathy, lumbar region (principal); M48.061 Spinal stenosis, lumbar region without neurogenic claudication
CPT/HCPCS: 62323; 99152; J0702; J1100; J2250; J3490